=== PATIENT | male | born 1955 | race Caucasian/White ===

== ENCOUNTER 2017-04-29 11:05 | Emergency (ER) | payer MEDICARE, OTHER ==
[~2017-04-29 11:05] MED LIST: ALLO100T PO; AMIO200T57 PO; ASPI-974 PO; ATOR80TA PO; ATR0.5NEB IH; CALC667C2 PO; CLOP75TA16 PO; DIPH1TAB PO; DIPH25CA83 PO; DOBUTamine/D5W 500mg/250ml premix IV ONE; DOCU-20 PO; FLO0.4C PO; GABA300C PO; LABE100T PO; LEVO100T PO; LIDOcaine 2% (20 mg/ml) 5ml cardiac syringe ONE; OXYC-658 PO; RISP1TAB13 PO; amiodarone 50MG/ML inj IV ONE; calcium chloride 100 MG/1 ML inj IV ONE; dextrose 50%-water 50ml dispensing syringe IV ONE; epiNEPHrine 0.1mg/ml 10ml syringe ONE; etomidate 2mg/ml inj. ONE; naloxone 2mg/2ml inj ONE; rocuronium 10mg/ml inj IV ONE; sodium bicarbonate (8.4%) 1 mEq/ml syringe ONE
[2017-04-29] MEDS ORDERED: insulin regular, human 10 units/0.1 ml syringe IV ONE (11:20)
[2017-04-29 11:43] LABS: BASOPHILS % (AUTO) 0.4 % (0-1); EOSINOPHILS # (AUTO) 0.1 X10'3 (0-0.9); EOSINOPHILS % (AUTO) 2.4 % (0-6); HEMATOCRIT 35.2 % (42.0-52.0); HEMOGLOBIN 11.6 g/dl (14.0-17.9); LYMPHOCYTES # (AUTO) 0.6 X10'3 (1.1-4.8); LYMPHOCYTES % (AUTO) 10.3 % (21-51); MEAN CORPUSCULAR HEMOGLOBIN 33.7 PG (27.0-31.0); MEAN CORPUSCULAR VOLUME 101.9 FL (78-98); MEAN PLATELET VOLUME 8.5 FL (7.4-10.4); MONOCYTES # (AUTO) 0.6 X10'3 (0-0.9); MONOCYTES % (AUTO) 10.8 % (2-12); NEUTROPHILS # (AUTO) 4.4 X10'3 (1.8-7.7); NEUTROPHILS % (AUTO) 76.1 % (42-75); PLATELET COUNT 153 X10'3 (140-440); RED BLOOD COUNT 3.45 X10'6 (4.70-6.10); RED CELL DISTRIBUTION WIDTH 19.4 % (11.5-14.5); WHITE BLOOD COUNT 5.8 X10'3 (4.5-11.0)
[2017-04-29 11:48] LABS: INR 1.2 INR; PARTIAL THROMBOPLASTIN TIME 28 SECONDS (22-32); PROTHROMBIN TIME 12.3 SECONDS (9.0-12.0)
[2017-04-29 11:52] LABS: ALANINE AMINOTRANSFERASE 32 U/L (12-78); ALBUMIN 3.5 G/DL (3.4-5.0); ALBUMIN/GLOBULIN RATIO 0.9 (1.1-1.5); ALKALINE PHOSPHATASE 111 IU/L (46-116); ANION GAP 12 (8-16); ASPARTATE AMINO TRANSFERASE 19 U/L (10-37); BILIRUBIN,TOTAL 0.7 MG/DL (0.1-1.0); BLOOD UREA NITROGEN 90 MG/DL (7-18); BUN/CREATININE RATIO 10.7 (5.4-32.0); CALCIUM 9.2 MG/DL (8.5-10.1); CHLORIDE 92 MMOL/L (99-107); GLUCOSE 185 MG/DL (70-104); SODIUM 132 MMOL/L (135-145); TOTAL CARBON DIOXIDE 28.2 MMOL/L (24-32); TOTAL PROTEIN 7.6 G/DL (6.4-8.2); eGFR 7 ML/MIN
[2017-04-29 11:53] LABS: POTASSIUM 8.3 MMOL/L (3.5-5.1)
[2017-04-29] MEDS ORDERED: insulin regular, human 10 units/0.1 ml syringe ONE (11:57)
[2017-04-29] MEDS ORDERED: albuterol 2.5 MG/3 ML nebule ONE ×2 (11:58→12:08)
[2017-04-29] MEDS ORDERED: sodium bicarbonate (8.4%) inj. 150 MEQ in dextrose 5%-water 1,000 ML IV SCH (12:05)
[2017-04-29] MEDS ORDERED: albuterol 2.5 MG/3 ML nebule CONTNEB PRN (12:20)
== END 2017-04-29 14:26 | disposition expired ==
LOC: ER 11:05
DX: I47.2 Ventricular tachycardia (principal); I12.0 Hypertensive chronic kidney disease with stage 5 chronic kidney disease or end stage renal disease; N18.6 End stage renal disease; E11.9 Type 2 diabetes mellitus without complications; G89.29 Other chronic pain; M10.9 Gout, unspecified; Z86.73 Personal history of transient ischemic attack (TIA), and cerebral infarction without residual deficits; Z95.1 Presence of aortocoronary bypass graft; Z99.2 Dependence on renal dialysis
CPT/HCPCS: 31500; 36415; 80053; 82948; 84484; 85025; 85610; 85730; 92950; 93005; 99291; J0171; J0282; J1250; J1815; J2001; J2310; J3490; 99285; 99292